=== PATIENT | female | born 1980 | race African-American/Black ===

== ENCOUNTER 2019-02-22 06:58 | Inpatient (IN) ==
[2019-02-22] MEDS: LACTATED RINGERS 1,000 ML IV SCH (07:50)
[2019-02-22] MEDS ORDERED: ceFAZolin 3,000 MG in SYRINGE 1 EACH IV ONE (07:52)
[2019-02-22] MEDS ORDERED: FAMOTIDINE 20 MG/2 ML VIAL IV ONE (07:52)
[2019-02-22] MEDS ORDERED: CITRIC ACID/SODIUM CITRATE 30 ML UDCUP PO ONE (07:52)
[2019-02-22] MEDS ORDERED: LACTATED RINGERS 1,000 ML IV ONE (07:53)
[2019-02-22] MEDS ORDERED: OXYTOCIN/LR 20 UNIT/1,000 ML BAG IV ONE ×2 (07:53→12:17)
[2019-02-22 08:18] LABS: INR 0.8; PT Patient Result 9.1 SECS; Partial Thromboplastin Time 24.5 SECS (0-40)
[2019-02-22 08:23] LABS: Basophils % 0.5 % (0.0-0.8); Eosinophils # 0.1 10*3/uL (0.0-0.87); Eosinophils % 1.6 % (0.00-10.9); Hematocrit 34.6 VOL% (35.7-47.0); Hemoglobin 10.9 GM/DL (12.0-16.0); Immature Granulocytes % 0.5 %; Immature Granulocytes Absolute 0.04 #; Lymphocytes # 2.2 10*3/uL (1.4-4.0); Lymphocytes % 29.5 % (21.3-54.2); Mean Corpuscular HGB Conc 31.5 GM/DL (32-36); Mean Corpuscular Hemoglobin 30 PG (27-34); Mean Platelet Volume 11.2 FL (9.6-12.0); Monocytes # 0.6 10*3/uL (0.11-0.8); Neutrophils # 4.5 10*3/uL (1.4-7.4); Neutrophils % 59.9 % (38.7-73.9); Platelet Count 321 T/CUMM (130-400); Red Blood Count 3.68 MC/CUMM (3.8-5.5); Red Cell Distribution Width 13.1 % (9.3-17.3); White Blood Count 7.6 T/CUMM (4-12)
[2019-02-22 08:24] LABS: Apearance,Urine CLEAR (Clear); Bilirubin,Urine Negative (Negative); Blood, Urine Moderate mg/dL (Negative); Glucose,Urine (UA) Negative (Negative); Ketones,Urine Negative (Negative); Mucus,Urine Many /LPF (Occasional); Nitrite,Urine Negative (Negative); Protein,Urine Negative; RBC,Urine 66 /HPF (0-4); Urine Color Yellow (Yellow); Urine Specific Gravity 1.016 (1.001-1.035); Urine Urobilinogen < 2.0 EU/DL (0.2-1.0); WBC,Urine 12 /HPF (0-6)
[2019-02-22 08:28] LABS: Bilirubin,Direct < 0.100 MG/DL (0.0-0.20); Uric Acid 4.5 MG/DL (2.6-6.0)
[2019-02-22] MEDS: METHYLDOPA 500 MG TABLET PO SCH ×2 (08:44→21:34)
[2019-02-22 08:53] LABS: Albumin 2.3 G/DL (3.4-5.0); Bilirubin,Total 0.4 MG/DL (0.2-1.0); Calcium 8.2 MG/DL (8.5-10.1); Potassium 3.6 MMOL/L (3.5-5.1); Total Protein 6.9 G/DL (6.4-8.3)
[2019-02-22] MEDS ORDERED: AMPICILLIN INJ 2,000 MG in SODIUM CHLORIDE 0.9% 100 ML IV ONE (09:04)
[2019-02-22] MEDS ORDERED: SODIUM CHLORIDE 0.9% 100 ML IV ONE (09:43)
[2019-02-22] MEDS ORDERED: fentaNYL 100 MCG/2 ML VIAL ONE (09:49)
[2019-02-22] MEDS ORDERED: BUPIVACAINE SPINAL 0.75% 2 ML AMP SPINAL ONE (09:50)
[2019-02-22] MEDS ORDERED: ONDANSETRON 4 MG/2 ML VIAL ONE (09:50)
[2019-02-22] MEDS ORDERED: ACETAMINOPHEN 325 MG TABLET PO PRN (12:17)
[2019-02-22] MEDS ORDERED: SIMETHICONE CHEW 80 MG TABLET PO PRN (12:17)
[2019-02-22] MEDS ORDERED: ONDANSETRON 4 MG/2 ML VIAL IV PRN (12:17)
[2019-02-22] MEDS ORDERED: RHO(D) IMMUNE GLOBULIN 300 MCG SYRINGE IM ONE (12:30)
[2019-02-22] MEDS ORDERED: PHENYLEPHRINE 1 MG/10 ML SYRINGE IV ONE (12:30)
[2019-02-22] MEDS ORDERED: MORPHINE 10 MG/10 ML VIAL ONE (12:32)
[2019-02-22] MEDS ORDERED: ceFAZolin 1,000 MG in SYRINGE 1 EACH IV SCH (16:00)
[2019-02-22] MEDS: IBUPROFEN 800 MG TABLET PO PRN (17:12)
[2019-02-22] MEDS: ceFAZolin 1,000 MG in SYRINGE 1 EACH IV SCH (20:02)
[2019-02-22 20:22] LABS: Basophils % 0.4 % (0.0-0.8); Eosinophils # 0.1 10*3/uL (0.0-0.87); Eosinophils % 0.9 % (0.00-10.9); Hematocrit 30.8 VOL% (35.7-47.0); Hemoglobin 9.7 GM/DL (12.0-16.0); Immature Granulocytes % 0.7 %; Immature Granulocytes Absolute 0.08 #; Lymphocytes # 1.7 10*3/uL (1.4-4.0); Lymphocytes % 15.6 % (21.3-54.2); Mean Corpuscular HGB Conc 31.5 GM/DL (32-36); Mean Corpuscular Hemoglobin 29 PG (27-34); Mean Corpuscular Volume 92.5 FL (87-102); Mean Platelet Volume 10.7 FL (9.6-12.0); Monocytes # 0.5 10*3/uL (0.11-0.8); Monocytes % 4.6 % (1.7-12.7); Neutrophils # 8.6 10*3/uL (1.4-7.4); Neutrophils % 77.8 % (38.7-73.9); Platelet Count 262 T/CUMM (130-400); Red Blood Count 3.33 MC/CUMM (3.8-5.5); White Blood Count 11.1 T/CUMM (4-12)
[2019-02-22] MEDS: DOCUSATE SODIUM 100 MG CAPSULE PO SCH (22:46)
[2019-02-23] MEDS: ceFAZolin 1,000 MG in SYRINGE 1 EACH IV SCH (04:05)
[2019-02-23 05:02] LABS: Basophils % 0.2 % (0.0-0.8); Eosinophils # 0.2 10*3/uL (0.0-0.87); Eosinophils % 2.1 % (0.00-10.9); Hematocrit 27.7 VOL% (35.7-47.0); Hemoglobin 8.7 GM/DL (12.0-16.0); Immature Granulocytes % 0.6 %; Immature Granulocytes Absolute 0.06 #; Lymphocytes # 1.4 10*3/uL (1.4-4.0); Lymphocytes % 14.5 % (21.3-54.2); Mean Corpuscular HGB Conc 31.4 GM/DL (32-36); Mean Corpuscular Hemoglobin 29 PG (27-34); Mean Corpuscular Volume 93.3 FL (87-102); Mean Platelet Volume 10.9 FL (9.6-12.0); Monocytes # 0.5 10*3/uL (0.11-0.8); Monocytes % 5.1 % (1.7-12.7); Neutrophils # 7.4 10*3/uL (1.4-7.4); Neutrophils % 77.5 % (38.7-73.9); Platelet Count 249 T/CUMM (130-400); Red Blood Count 2.97 MC/CUMM (3.8-5.5); Red Cell Distribution Width 13.1 % (9.3-17.3); White Blood Count 9.6 T/CUMM (4-12)
[2019-02-23] MEDS: METHYLDOPA 500 MG TABLET PO SCH (08:38)
[2019-02-23] MEDS: DOCUSATE SODIUM 100 MG CAPSULE PO SCH ×2 (08:39→20:01)
[2019-02-23] MEDS: MAGNESIUM HYDROXIDE SUSP 30 ML UDCUP PO PRN ×2 (08:39→20:01)
[2019-02-23] MEDS: MULTIVITAMIN (PRENATAL) TABLET PO SCH (08:39)
[2019-02-23] MEDS: LACTATED RINGERS 1,000 ML IV SCH ×5 (11:21→16:39)
[2019-02-23] MEDS: IBUPROFEN 800 MG TABLET PO PRN ×2 (13:47→22:15)
[2019-02-24] MEDS: METHYLDOPA 500 MG TABLET PO SCH ×3 (00:12→20:01)
[2019-02-24] MEDS: MULTIVITAMIN (PRENATAL) TABLET PO SCH (09:22)
[2019-02-24] MEDS: MAGNESIUM HYDROXIDE SUSP 30 ML UDCUP PO PRN (09:22)
[2019-02-24] MEDS: DOCUSATE SODIUM 100 MG CAPSULE PO SCH (09:22)
[2019-02-25] MEDS: IBUPROFEN 800 MG TABLET PO PRN (01:47)
[2019-02-25] MEDS: DOCUSATE SODIUM 100 MG CAPSULE PO SCH ×2 (01:48→08:38)
[2019-02-25 07:16] VITALS: BP 126/63
[2019-02-25] MEDS: METHYLDOPA 500 MG TABLET PO SCH (08:38)
[2019-02-25] MEDS: MULTIVITAMIN (PRENATAL) TABLET PO SCH (08:38)
== END 2019-02-25 10:00 | disposition home or self-care (01) | DRG 540 ==
LOC: N.LDOUT 06:58 → N.LD 07:00 → N.OB 15:12
PROVIDERS: ADMIT Obstetrics & Gynecology; ATTEND Obstetrics & Gynecology
PROC: LDCSECT (ICD-10-PCS; 2019-02-22 11:00)

== ENCOUNTER 2020-07-27 05:35 | Inpatient (IN) ==
[2020-07-27] MEDS ORDERED: ceFAZolin 3,000 MG in SYRINGE 1 EACH IV ONE (05:45)
[2020-07-27] MEDS ORDERED: CITRIC ACID/SODIUM CITRATE 30 ML UDCUP PO ONE (05:45)
[2020-07-27] MEDS ORDERED: FAMOTIDINE 20 MG/2 ML VIAL IV ONE (05:45)
[2020-07-27] MEDS: LACTATED RINGERS 1,000 ML IV SCH ×2 (06:13→08:56)
[2020-07-27 06:18] LABS: Basophils % 0.4 % (0.0-0.8); Eosinophils # 0.2 10*3/uL (0.0-0.87); Eosinophils % 1.8 % (0.00-10.9); Hematocrit 33.1 VOL% (35.7-47.0); Hemoglobin 10.9 GM/DL (12.0-16.0); Immature Granulocytes % 0.6 %; Immature Granulocytes Absolute 0.05 #; Lymphocytes # 2.3 10*3/uL (1.4-4.0); Lymphocytes % 26.8 % (21.3-54.2); Mean Corpuscular HGB Conc 32.9 GM/DL (32-36); Mean Corpuscular Volume 93.2 FL (87-102); Mean Platelet Volume 9.9 FL (9.6-12.0); Monocytes % 8.1 % (1.7-12.7); Neutrophils % 62.3 % (38.7-73.9); Platelet Count 343 T/CUMM (130-400); Red Blood Count 3.55 MC/CUMM (3.8-5.5); Red Cell Distribution Width 14.7 % (9.3-17.3); White Blood Count 8.4 T/CUMM (4-12)
[2020-07-27 06:44] LABS: Albumin 2.5 G/DL (3.4-5.0); Bilirubin,Total 0.7 MG/DL (0.2-1.0); Osmolality,Calculated 271.7 MOS/KG (273-304)
[2020-07-27 07:15] LABS: Bilirubin,Direct 0.16 MG/DL (0.0-0.20); INR 0.9; PT Patient Result 9.9 SECS (9.8-11.9); Partial Thromboplastin Time 29.6 SECS (23.9-33.8)
[2020-07-27] MEDS ORDERED: BUPIVACAINE SPINAL 0.75% 2 ML AMP SPINAL ONE (08:06)
[2020-07-27] MEDS ORDERED: OXYTOCIN/LR 20 UNIT/1,000 ML BAG IV ONE ×2 (09:15→10:26)
[2020-07-27 10:21] LABS: Cord Arterial Blood HCO3 21.9 MMOL/L; Cord Venous Blood HCO3 24.3 MMOL/L; Cord Venous Blood PCO2 49.3 MMHG
[2020-07-27 10:25] LABS: Apearance,Urine CLEAR (Clear); Bacteria,Urine Occasional /HPF (Few); Bilirubin,Urine Negative (Negative); Blood, Urine Negative (Negative); Glucose,Urine (UA) Negative (Negative); Ketones,Urine 5 mg/dL (Negative); Mucus,Urine Occasional /LPF (Occasional); Nitrite,Urine Negative (Negative); Protein,Urine 30 MG/DL; RBC,Urine 9 /HPF (0-4); Squamous Epithelial Cell,Urine Occasional /HPF (0-10); Urine Color Yellow (Yellow); Urine Specific Gravity 1.038 (1.001-1.035); WBC,Urine 3 /HPF (0-6)
[2020-07-27] MEDS ORDERED: RHO(D) IMMUNE GLOBULIN 300 MCG SYRINGE IM ONE (10:26)
[2020-07-27] MEDS ORDERED: ONDANSETRON 4 MG/2 ML VIAL IV PRN (10:26)
[2020-07-27] MEDS ORDERED: MAGNESIUM HYDROXIDE SUSP 30 ML UDCUP PO PRN (10:26)
[2020-07-27] MEDS ORDERED: SIMETHICONE CHEW 80 MG TABLET PO PRN (10:26)
[2020-07-27] MEDS ORDERED: IBUPROFEN 800 MG TABLET PO PRN (10:26)
[2020-07-27] MEDS ORDERED: ACETAMINOPHEN 325 MG TABLET PO PRN (10:26)
[2020-07-27] MEDS ORDERED: LACTATED RINGERS 1,000 ML IV SCH (10:30)
[2020-07-27] MEDS ORDERED: MORPHINE 10 MG/10 ML VIAL ONE (10:48)
[2020-07-27] MEDS ORDERED: ONDANSETRON 4 MG/2 ML VIAL ONE (10:48)
[2020-07-27 18:13] LABS: Basophils % 0.2 % (0.0-0.8); Eosinophils # 0.1 10*3/uL (0.0-0.87); Eosinophils % 0.8 % (0.00-10.9); Hematocrit 31.2 VOL% (35.7-47.0); Hemoglobin 10.4 GM/DL (12.0-16.0); Immature Granulocytes % 0.3 %; Immature Granulocytes Absolute 0.03 #; Lymphocytes # 1.5 10*3/uL (1.4-4.0); Lymphocytes % 15.1 % (21.3-54.2); Mean Corpuscular HGB Conc 33.3 GM/DL (32-36); Mean Corpuscular Volume 92.6 FL (87-102); Mean Platelet Volume 10.4 FL (9.6-12.0); Monocytes % 5.5 % (1.7-12.7); Neutrophils % 78.1 % (38.7-73.9); Platelet Count 297 T/CUMM (130-400); Red Blood Count 3.37 MC/CUMM (3.8-5.5); Red Cell Distribution Width 14.6 % (9.3-17.3); White Blood Count 9.8 T/CUMM (4-12)
[2020-07-27] MEDS: DOCUSATE SODIUM 100 MG CAPSULE PO SCH (21:28)
[2020-07-27] MEDS: LABETALOL 100 MG TABLET PO SCH (21:29)
[2020-07-28 05:04] LABS: Basophils % 0.2 % (0.0-0.8); Eosinophils # 0.2 10*3/uL (0.0-0.87); Eosinophils % 1.3 % (0.00-10.9); Hematocrit 31.1 VOL% (35.7-47.0); Hemoglobin 10.2 GM/DL (12.0-16.0); Immature Granulocytes % 0.7 %; Immature Granulocytes Absolute 0.08 #; Lymphocytes # 1.5 10*3/uL (1.4-4.0); Lymphocytes % 13.4 % (21.3-54.2); Mean Corpuscular HGB Conc 32.8 GM/DL (32-36); Mean Corpuscular Volume 92.6 FL (87-102); Monocytes % 5.8 % (1.7-12.7); Neutrophils % 78.6 % (38.7-73.9); Platelet Count 287 T/CUMM (130-400); Red Blood Count 3.36 MC/CUMM (3.8-5.5); Red Cell Distribution Width 14.6 % (9.3-17.3); White Blood Count 11.2 T/CUMM (4-12)
[2020-07-28] MEDS: DOCUSATE SODIUM 100 MG CAPSULE PO SCH ×2 (08:33→21:56)
[2020-07-28] MEDS: LABETALOL 100 MG TABLET PO SCH ×2 (08:33→21:56)
[2020-07-28] MEDS: MULTIVITAMIN (PRENATAL) TABLET PO SCH (08:33)
[2020-07-29 08:06] VITALS: BP 133/71
[2020-07-29] MEDS: LABETALOL 100 MG TABLET PO SCH (09:01)
[2020-07-29] MEDS: DOCUSATE SODIUM 100 MG CAPSULE PO SCH (09:03)
[2020-07-29] MEDS: MULTIVITAMIN (PRENATAL) TABLET PO SCH (09:03)
== END 2020-07-29 14:30 | disposition home or self-care (01) | DRG 540 ==
LOC: N.LD 05:35 → N.OB 14:03
PROVIDERS: ADMIT Obstetrics & Gynecology; ATTEND Obstetrics & Gynecology
PROC: LDCSECT (ICD-10-PCS; 2020-07-27 11:15)